=== PATIENT | female | born 1995 | race Native Hawaiian/Other Pacific Islander ===

== ENCOUNTER 2016-07-17 20:27 | Emergency (ER) | payer SELFPAY ==
[~2016-07-17] VITALS: Ht 157.5 cm; Wt 54.5 kg
[~2016-07-17 20:27] MED LIST: ADVIL200 MG; BACTRIM DS 8001 TAB PO; CEPHALEXIN500 M1 PO; DOXYCYCLINE 10100 MG PO; NORCO 325 MG-51 TAB PO
[2016-07-17 20:31] VITALS: TEMP 99.9
[2016-07-17] MEDS ORDERED: NORCO 325 MG-51 TAB PO (21:37)
[2016-07-17] MEDS ORDERED: CLEOCIN HC150 MG/CAP PO (21:37)
[2016-07-17 21:56] VITALS: BP 127/85; PULSE 97
== END 2016-07-17 21:56 | disposition home or self-care (01) ==
LOC: COL.ER 20:27
DX: N75.1 Abscess of Bartholin's gland (principal)

== ENCOUNTER 2017-01-07 15:16 | Emergency (ER) | payer SELFPAY ==
[~2017-01-07 15:16] MED LIST changes: +CLEOCIN HC150 MG/CAP PO
[2017-01-07 15:27] VITALS: BP 154/90; PULSE 118; TEMP 98.5
[2017-01-07] MEDS ORDERED: BACTRIM DS 8001 TAB PO (16:21)
[2017-01-07] MEDS ORDERED: NORCO 325 MG-51 TAB PO (16:23)
== END 2017-01-07 16:39 | disposition home or self-care (01) ==
LOC: COL.ER 15:16
DX: N75.1 Abscess of Bartholin's gland (principal)
CPT/HCPCS: J1170; J1200

== ENCOUNTER 2017-09-01 17:04 | Emergency (ER) | payer SELFPAY ==
[~2017-09-01] VITALS: Ht 152.4 cm; Wt 72.7 kg
[2017-09-01 17:08] VITALS: TEMP 99
[2017-09-01] MEDS ORDERED: BACTRIM DS 8001 TAB PO (19:18)
[2017-09-01] MEDS ORDERED: NORCO 325 MG-51 TAB PO (19:18)
[2017-09-01 20:53] VITALS: BP 99/65; PULSE 106
== END 2017-09-01 20:50 | disposition home or self-care (01) ==
LOC: COL.ER 17:04
DX: N76.4 Abscess of vulva (principal); Z87.891 Personal history of nicotine dependence

== ENCOUNTER 2017-10-12 06:24 | Emergency (ER) | payer SELFPAY ==
[~2017-10-12] VITALS: Ht 157.5 cm; Wt 76.8 kg
[2017-10-12 06:30] VITALS: TEMP 100.4
[2017-10-12] MEDS ORDERED: BACTRIM DS 8001 TAB PO (07:29)
[2017-10-12] MEDS ORDERED: NORCO 325 MG-51 TAB PO (07:30)
[2017-10-12 08:17] VITALS: BP 117/89; PULSE 104
== END 2017-10-12 08:17 | disposition home or self-care (01) ==
LOC: COL.ER 06:24
DX: N76.4 Abscess of vulva (principal)

== ENCOUNTER 2018-01-13 08:21 | Emergency (ER) | payer SELFPAY ==
[~2018-01-13] VITALS: Ht 147.3 cm; Wt 72.7 kg
[2018-01-13 08:28] VITALS: TEMP 99.3
[2018-01-13] MEDS ORDERED: BACTRIM DS 8001 TAB PO (10:36)
[2018-01-13] MEDS ORDERED: NORCO 325 MG-51 TAB PO (10:36)
[2018-01-13 11:13] VITALS: BP 119/77; PULSE 96
== END 2018-01-13 11:14 | disposition home or self-care (01) ==
LOC: COL.ER 08:21
DX: N75.1 Abscess of Bartholin's gland (principal)
CPT/HCPCS: J1170; J2550

== ENCOUNTER 2019-01-30 23:48 | Emergency (ER) | payer SELFPAY ==
[~2019-01-30] VITALS: Ht 147.3 cm; Wt 75.9 kg
[2019-01-30 23:50] VITALS: BP 128/87; TEMP 98.3
[2019-01-31] MEDS ORDERED: AMOXICILLIN 8751 TAB PO (00:10)
[2019-01-31 00:23] VITALS: PULSE 95
== END 2019-01-31 00:23 | disposition home or self-care (01) ==
LOC: COL.ER 23:48
DX: K02.9 Dental caries, unspecified (principal)

== ENCOUNTER 2019-03-09 17:36 | Emergency (ER) | payer SELFPAY ==
[~2019-03-09] VITALS: Ht 147.3 cm; Wt 77.3 kg
[~2019-03-09 17:36] MED LIST changes: +AMOXICILLIN 8751 TAB PO
[2019-03-09 17:40] VITALS: TEMP 98.7
[2019-03-09 18:24] LABS: BASO # 0.1 (0.0-0.2); BASO % 0.8 % (0.0-2.0); EOS # 0.7 (0.0-0.7); EOS % 6.5 % (0-4.0); GRAN # 4.5 (1.4-6.5); GRAN % 42.5 % (42.2-75.2); HEMATOCRIT 43.8 % (37.0-47.0); HEMOGLOBIN 14.1 g/dl (12.5-16.0); LYMPH # 4.5 (1.2-3.4); LYMPH % 42.2 % (20.0-51.0); MEAN CELL VOLUME 88 fl (80.0-100.0); MEAN CORPUSCULAR HEMOGLOBIN 28 pg (27.0-31.0); MEAN CORPUSCULAR HGB CONC 32 g/dl (33.0-37.0); MEAN PLATELET VOLUME 10.4 fl (7.4-10.4); MONO # 0.8 (0.1-0.6); MONO % 7.6 % (1.7-9.3); PLATELET COUNT 269 K/mm3 (130-400); RED BLOOD COUNT 4.97 M/mm3 (4.10-5.30); REDCELL DISTRIBUTION WIDTH-CV 12.6 % (11.5-14.5)
[2019-03-09 18:40] LABS: ALBUMIN 4.2 gm/dL (3.5-5.0); BILIRUBIN,TOTAL 0.5 mg/dL (0.0-1.0); C-REACTIVE PROTEIN 1.1 mg/dL (0.0-0.9); CALCIUM 8.9 mg/dL (8.4-10.2); CREATININE, serum 0.59 (0.52-1.25); POTASSIUM 4.1 mmol/L (3.4-5.0); TOTAL PROTEIN 7.6 gm/dL (6.4-8.2)
[2019-03-09 20:24] VITALS: BP 123/70; PULSE 64
== END 2019-03-09 20:24 | disposition home or self-care (01) ==
LOC: COL.ER 17:36
PROVIDERS: Nurse Practitioner
DX: R51 Headache (principal)
CPT/HCPCS: J1200; J2765; J7030

== ENCOUNTER 2019-08-20 20:08 | Emergency (ER) | payer SELFPAY ==
[~2019-08-20] VITALS: Ht 149.9 cm; Wt 81.8 kg
[2019-08-20 20:28] VITALS: BP 127/87
[2019-08-20] MEDS ORDERED: PHENERGAN 25 TA25 MG PO (23:08)
[2019-08-20] MEDS ORDERED: TAMIFLU 75MG75 MG PO (23:08)
[2019-08-21 00:19] VITALS: PULSE 103; TEMP 98.6
== END 2019-08-21 00:18 | disposition home or self-care (01) ==
LOC: COL.ER 20:08
DX: J11.1 Influenza due to unidentified influenza virus with other respiratory manifestations (principal)